=== PATIENT | female | born 1945 | race Caucasian/White ===

== ENCOUNTER 2017-12-30 19:28 | Emergency (ER) | payer MEDICARE, OTHER ==
[~2017-12-30 19:28] MED LIST: ISOVUE-370 76%-LOCM 1 ML ONE
[2017-12-30 20:03] LABS: Bilirubin Negative (Negative); Blood, Urine Negative (Negative); Clarity CLEAR (Clear); Glucose, Urine (Dipstick) Negative (Negative); Leukocyte Trace (Negative); Nitrite Negative (Negative); Protein, Urine (Dipstick) Negative (Neg-Trace); Specific Gravity, Urine 1.012 (1.002-1.036); Urobilinogen 0.2 mg/dL (0.2-1.0)
[2017-12-30 20:06] LABS: Bacteria/HPF None Seen HPF (None Seen); Hyaline Casts/LPF 0-3 HYALINE CAST LPF (0-3 Hyaline); RBC/HPF 0-3 HPF (0-3); Squamous Epithelial 0-3 HPF (0-3); WBC/HPF 0-3 HPF (0-3)
[2017-12-30] MEDS ORDERED: Morphine 2 MG/ML SYRINGE ONE (20:10)
[2017-12-30] MEDS ORDERED: Ondansetron PF 4 MG/2 ML Vial ONE (20:11)
[2017-12-30 20:14] LABS: #Lymphocytes 1.2 thou/uL (1.20-3.40); #Monocytes 0.3 thou/uL (0.11-0.59); #Neutrophils 7.4 thou/uL (1.40-6.50); %Basophils 0.4 % (0.0-1.0); %Eosinophils 0.3 % (0.0-10.0); %Lymphocytes 13.6 % (21.0-51.0); %Monocytes 3.6 % (0.0-10.0); Hemoglobin 15.5 g/dL (12.0-16.0); Mean Corpuscular HGB CONC 33.4 g/dL (32.0-36.0); Mean Corpuscular Hemoglobin 31.9 pg (27.0-31.0); Mean Corpuscular Volume 95.5 fL (78.0-98.0); Mean Platelet Volume 6.4 fL (7.4-10.4); Platelet Count 255 thou/uL (130-400); RBC Distribution Width 12.1 % (11.5-14.5); Red Blood Cell (RBC) Count 4.87 mill/uL (4.20-5.40)
[2017-12-30 20:34] LABS: ALT (SGPT) 16 U/L (8-55); AST (SGOT) 21 U/L (5-34); Albumin 4.1 g/dL (3.4-4.8); Alkaline Phosphatase 82 U/L (40-150); Anion Gap 13 mmol/L (10-20); BUN (Urea Nitrogen) 17 mg/dL (9.8-20.1); Bilirubin, Total 1.5 mg/dL (0.2-1.2); Calc. Creatinine Clearance 0 mL/min (70-130); Calcium 9.1 mg/dL (7.8-10.44); Carbon Dioxide 24 mmol/L (23-31); Chloride 108 mmol/L (98-107); Estimated GFR-MDRD 66; Globulin 3.5 g/dL (2.4-3.5); Glucose 119 mg/dL (83-110); Lipase 14 U/L (8-78); Potassium 3.5 mmol/L (3.5-5.1); Protein, Total 7.6 g/dL (6.0-8.3); Sodium 141 mmol/L (136-145)
[2017-12-30] MEDS ORDERED: Morphine 4 MG/ML VIAL ONE (20:54)
[2017-12-30] MEDS ORDERED: Ketorolac Tromethamine 30 MG/ML VIAL ONE (21:45)
--- NOTE | 2017-12-30 21:55 | CT ---
CONTRAST ENHANCED CT IMAGES OF THE ABDOMEN AND PELVIS 12/30/17 HISTORY: Left lower quadrant pain. Contrast enhanced CT images of the abdomen and pelvis is obtained after administration of IV contrast . The lung bases are unremarkable. No evidence of free intraperitoneal air seen. The liver is unremarkable. The gallbladder has been surgically removed. There is post cholecystectomy physiologic dilatation of the common bile duct. The spleen is unremarkable. A small hiatal hernia is seen. The pancreas is unremarkable. Adrenal glands unremarkable. Right sided parapelvic renal cyst seen. No evidence of right sided hydronephrosis seen. There is some fat stranding surrounding the left kidney. There is extensive left sided hydroureterone phrosis with marked dilatation of the left renal pelvis and ureter. There is an obstructing 5.3 mm di stal left ureteral calculus at the left ureterovesicular junction. Areas of moderate segmental small bowel dilatation also seen. A large amount of stool is seen in the cecum and proximal colon. No evidence of significant pelvic abscess is seen. Some descending and sigmoid colonic diverticulosis is present. IMPRESSION: Obstructing distal left ureteral calculus with left sided hydroureteronephrosis. POS: FLAVIA
== END 2017-12-30 22:07 | disposition home or self-care (01) ==
LOC: ERS 19:28
DX: N13.2 Hydronephrosis with renal and ureteral calculous obstruction (principal); I10 Essential (primary) hypertension
CPT/HCPCS: 74177; 80053; 81003; 81015; 83690; 85025; 96361; 96374; 96375; 96376; J1885; J2270; J2405

== ENCOUNTER 2018-03-23 13:24 | Outpatient (CLI) | payer MEDICARE, OTHER | END 2018-03-23 13:25 | disposition home or self-care (01) | LOC: BICMAMMO 13:24 | PROVIDERS: ATTEND Internal Medicine | DX: Z12.31 Encounter for screening mammogram for malignant neoplasm of breast (principal); R92.1 Mammographic calcification found on diagnostic imaging of breast | CPT/HCPCS: 77063; 77067 ==

== ENCOUNTER → 2018-12-03 | Day surgery (SDC) | payer MEDICARE, OTHER ==
[~2018-12-03] MED LIST changes: +Cyclopentolate 1% Opth Drop 2 ML BOT ONE; +EPINEPHrine 0.3 MG in Ophthalmic Irrigation Solution 500 ML IVP SCH; +Fentanyl 100 MCG/2 ML VIAL ONE; -ISOVUE-370 76%-LOCM 1 ML ONE; +Midazolam HCl 2 mg/2 ml Vial ONE; +PROPOFOL 20 ML ONE; +Phenylephrine 2.5% Ophth Soln 5 ML BOT ONE
--- NOTE | 2018-12-03 17:42 | OP ---
DATE OF PROCEDURE: 12/03/2018 PRINCIPAL PREOPERATIVE DIAGNOSIS: Macula off rhegmatogenous retinal detachment, left eye. POSTOPERATIVE DIAGNOSIS: Macula off rhegmatogenous retinal detachment, left eye. NAME OF PROCEDURES PERFORMED: 1. 25-gauge pars plana vitrectomy, left eye. 2. Rhegmatogenous retinal detachment repair, left eye. 3. Endolaser, left eye. 4. 15% C3F8 gas fill, left eye. ESTIMATED BLOOD LOSS: None. SPECIMENS REMOVED: None. COMPLICATIONS: None. ANESTHESIA: MAC with retrobulbar block. SUMMARY OF OPERATION: The patient was identified in the preoperative holding area, where the correct eye being the left eye was marked for surgery. The patient was taken to the operating room, where MAC anesthesia was induced. A retrobulbar block was administered to the left eye. The block consisted of 1:1 ratio of 4% lidocaine and 0.75% Marcaine. A total of 5 mL was administered. The left eye was then prepped and draped in the usual sterile ophthalmic fashion for surgery. A wire lid speculum was placed. A standard 25-gauge pars plana vitrectomy platform was fashioned with the trocars placed approximately 3.5 mm from limbus. The infusion was noted to be within the vitreous cavity prior to being turned on to infusion pressure of 30 mmHg. The light pipe and micro vitrector were introduced in the eye under visualization of RESIGHT viewing system. The macula involving fovea off rhegmatogenous retinal detachment was noted from approximately 3 o'clock to 9 o'clock. A small area of lattice degeneration was noted at 4 o'clock with 2 small holes within the lattice. A careful core and peripheral shave vitrectomy were performed with the assistance of scleral depression. Great care was taken to relieve all traction off the area of lattice degeneration. Following vitrectomy, endo cautery was used to germaine the aforementioned defect as well as to create a temporal drainage retinotomy. The drainage retinotomy site was subsequently opened with a flute needle, which allowed for drainage of thick subretinal fluid. An air-fluid exchange was performed, which allowed for complete flattening of the retina. Subsequently, the Endolaser was used to provide barricade around the drainage retinotomy as well as the defect inferotemporally and a 360-degree cerclage in typical fashion with sparing of the 3 and 9 o'clock meridians. Following Endolaser, the flute needle was reintroduced in the eye to remove any residual subretinal fluid. An air-gas exchange was subsequently performed with 15% C3F8. The cannulas were sequentially removed and all sclerotomies were noted to be gas tight. Subconjunctival Ancef and Kenalog were injected. The wire lid speculum was removed followed by application of TobraDex ophthalmic ointment and a light patch and shield. The patient tolerated the procedure well and was taken to the outpatient recovery in good condition. Job ID: [id number]
== END ==
LOC: SDC 10:22
PROVIDERS: ATTEND Ophthalmology Retina Specialist
PROC: 08T53ZZ Resection of Left Vitreous, Percutaneous Approach (ICD-10-PCS; principal; 2018-12-03)
DX: H33.002 Unspecified retinal detachment with retinal break, left eye (principal)
CPT/HCPCS: J0171; J2250; J2704; J3010

== ENCOUNTER 2019-01-08 06:48 | Outpatient (CLI) | payer MEDICARE, OTHER | END 2019-01-08 06:49 | disposition home or self-care (01) | LOC: LABBT 06:48 | PROVIDERS: ATTEND Student in an Organized Health Care Education/Training Program | DX: Z01.812 Encounter for preprocedural laboratory examination (principal); N81.6 Rectocele | CPT/HCPCS: 80048; 85027; 86850; 86900; 86901 ==

== ENCOUNTER 2019-01-12 12:03 | Day surgery (SDC) | payer MEDICARE, OTHER ==
[2019-01-08 11:02] VITALS: BMI 26.6
[2019-01-08 12:19] LABS: Hemoglobin 14.7 g/dL (12.0-16.0); Mean Corpuscular Hemoglobin 31.4 pg (27.0-31.0); Mean Corpuscular Volume 95.2 fL (78.0-98.0); Mean Platelet Volume 6.6 fL (7.4-10.4); Platelet Count 242 thou/uL (130-400); Red Blood Cell (RBC) Count 4.68 mill/uL (4.20-5.40); White Blood Cell (WBC) Count 4.8 thou/uL (4.8-10.8)
[2019-01-08 12:32] LABS: Anion Gap 11 mmol/L (10-20); BUN (Urea Nitrogen) 14 mg/dL (9.8-20.1); Calc. Creatinine Clearance 0 mL/min (70-130); Calcium 9.1 mg/dL (7.8-10.44); Carbon Dioxide 26 mmol/L (23-31); Chloride 111 mmol/L (98-107); Estimated GFR-MDRD 82; Glucose 87 mg/dL (83-110); Potassium 3.8 mmol/L (3.5-5.1); Sodium 144 mmol/L (136-145)
[~2019-01-12 12:03] MED LIST changes: -Cyclopentolate 1% Opth Drop 2 ML BOT ONE; +Dexamethasone 20 MG/5 ML VIAL ONE; -EPINEPHrine 0.3 MG in Ophthalmic Irrigation Solution 500 ML IVP SCH; -Fentanyl 100 MCG/2 ML VIAL ONE; +Lidocaine 1% PF 5 ML VIAL ONE; -Midazolam HCl 2 mg/2 ml Vial ONE; +Ondansetron PF 4 MG/2 ML Vial ONE; -PROPOFOL 20 ML ONE; +PROPOFOL 200 MG/20 ML VIAL ONE; -Phenylephrine 2.5% Ophth Soln 5 ML BOT ONE; +ePHEDrine/0.9% NaCl/PF SYRINGE 50 mg/10 ml ONE
[2019-01-12] MEDS ORDERED: Heparin 5,000 UNITS/ML VIAL ONE (12:33)
[2019-01-12] MEDS ORDERED: Lidocaine 0.5%/Epinephrine 1:200,000 50 ml Vial ONE (13:06)
[2019-01-12] MEDS ORDERED: Propofol 500 MG/50 ML VIAL ONE (13:13)
[2019-01-12] MEDS ORDERED: Fentanyl 100 MCG/2 ML VIAL ONE ×2 (13:14→14:31)
--- NOTE | 2019-01-12 15:57 | OP ---
DATE OF PROCEDURE: 01/12/2019 PREOPERATIVE DIAGNOSIS: Rectocele. POSTOPERATIVE DIAGNOSIS: Rectocele. PROCEDURES PERFORMED: Posterior colporrhaphy and perineoplasty. ANESTHESIA: General endotracheal. EMPLOYEE RELATIONS MANAGER SURGEON: Sona Calles PA-C ESTIMATED BLOOD LOSS: 20 mL. IVF: 100 mL of crystalloid. URINE OUTPUT: 100 mL clear urine. COMPLICATIONS: None. DRAINS: None. PATHOLOGY: None. FINDINGS: Large rectocele defect protruding past the hymen. There was no suture material in the rectum on rectal exam at the conclusion of the procedure. Excellent hemostasis noted. OPERATIVE TECHNIQUE: The patient was taken to the operating room, where general anesthesia was obtained without difficulty. The patient was prepped and draped in a sterile fashion in the dorsal lithotomy position. Denise catheter was placed in the bladder. The rectocele was visible without doing a vaginal exam. The hymen was grasped with Allis clamps at 5 and 7 o'clock. The posterior vaginal mucosa was injected with 0.5% lidocaine with epi. The Metzenbaums were used to incise at the hymen in the midline posteriorly, and the vaginal mucosa was undermined with the Metzenbaums and then incised in the midline up to the furthest extent of the rectocele, which came to the cervix. Allis clamps were then placed on both sides of the incision. The Metzenbaums were used to dissect the fascia off the vaginal mucosa, and full dissection was then carried out with a fluffed-out Ray-Robert out to the white line. The 2-0 Vicryl was used to plicate the rectovaginal fascia in the midline. The rectal exam was performed. There were no sutures in the rectal wall. There was noted to be defect also in the perineum. Therefore, the perineal skin was incised with the Bovie on cut and the skin was dissected off using the Bovie on cautery. This was discarded. The superficial transverse perineal muscles were then dissected out with the Metzenbaum's and these were then plicated in the midline with 2-0 Vicryl. At that time, irrigation was performed of the incision and hemostasis was noted. The vaginal mucosa was trimmed, and the vaginal incision was reapproximated with a 0 Vicryl in a running fashion with excellent hemostasis noted. The packing of moist Kerlix was placed in the vagina, and the Denise catheter was removed at the conclusion of the procedure. The patient tolerated the procedure well. Sponge, lap, and needle counts were correct x2. The patient was taken to recovery room in stable condition. The patient received Ancef 2 g per prior to the procedure. Job ID: [id number]
[2019-01-12] MEDS ORDERED: HYDROcodone/Acetaminophen 5/325 mg Tablet ONE (16:10)
== END 2019-01-12 17:40 | disposition home or self-care (01) ==
LOC: SDC 12:03
PROVIDERS: ATTEND Student in an Organized Health Care Education/Training Program
PROC: 0JQC0ZZ Repair Pelvic Region Subcutaneous Tissue and Fascia, Open Approach (ICD-10-PCS; principal; 2019-01-12)
DX: N81.6 Rectocele (principal)
CPT/HCPCS: 36415; 80048; 85027; 86850; 86900; 86901; J0690; J1100; J1644; J2001; J2405; J2704; J3010

== ENCOUNTER 2022-06-03 11:18 | Outpatient (CLI) | payer MEDICARE | END 2022-06-03 11:19 | disposition home or self-care (01) | LOC: BICMAMMO 11:18 | PROVIDERS: ATTEND Internal Medicine | DX: Z12.31 Encounter for screening mammogram for malignant neoplasm of breast (principal) | CPT/HCPCS: 77063; 77067 ==

== ENCOUNTER 2024-01-28 14:56 | Emergency (ER) | payer MEDICARE ==
[2024-01-28 16:34] LABS: #Basophils 0.04 10x3/uL (0.0-0.2); %Basophils 0.6 % (0.0-1.0); %Eosinophils 0.9 % (0.0-10.0); %Lymphocytes 14.9 % (21.0-51.0); %Monocytes 7.7 % (0.0-10.0); %Neutrophils 75.7 % (42.0-75.0); Hematocrit 41.7 % (36.0-47.0); Hemoglobin 13.8 g/dL (12.0-16.0); Mean Corpuscular HGB CONC 33.1 g/dL (32.0-36.0); Mean Corpuscular Hemoglobin 32.8 pg (27.0-31.0); Platelet Count 198 10x3/uL (130-400); Red Blood Cell (RBC) Count 4.21 mill/uL (4.20-5.40)
[2024-01-28 17:01] LABS: ALT (SGPT) 17 U/L (8-55); AST (SGOT) 26 U/L (5-34); Albumin 3.1 g/dL (3.4-4.8); Alkaline Phosphatase 76 U/L (40-110); Anion Gap 11 mmol/L (10-20); BUN (Urea Nitrogen) 14 mg/dL (9.8-20.1); Bilirubin, Total 0.8 mg/dL (0.2-1.2); Calc. Creatinine Clearance 0 mL/min (70-130); Calcium 8.5 mg/dL (7.8-10.44); Carbon Dioxide 23 mmol/L (23-31); Chloride 114 mmol/L (98-107); Estimated GFR 72; Globulin 3.1 g/dL (2.4-3.5); Glucose 108 mg/dL (83-110); Potassium 3.4 mmol/L (3.5-5.1); Protein, Total 6.2 g/dL (5.8-8.1); Sodium 145 mmol/L (136-145)
[2024-01-28 17:04] LABS: Troponin I Less than 0.010 ng/mL (< 0.028)
== END 2024-01-28 17:22 | disposition home or self-care (01) ==
LOC: ERS 14:56
DX: I82.431 Acute embolism and thrombosis of right popliteal vein (principal)
CPT/HCPCS: 36415; 80053; 83880; 84484; 85025

== ENCOUNTER 2024-10-26 13:30 | Outpatient (CLI) | payer MEDICARE | END 2024-10-26 13:31 | disposition home or self-care (01) | LOC: BICMAMMO 13:30 | PROVIDERS: ATTEND Internal Medicine | DX: Z12.31 Encounter for screening mammogram for malignant neoplasm of breast (principal); Z85.3 Personal history of malignant neoplasm of breast; Z98.890 Other specified postprocedural states | CPT/HCPCS: 77063; 77067 ==